=== PATIENT | male | born 1955 | race Caucasian/White ===

== ENCOUNTER 2019-12-04 06:10 | Day surgery (SDC) | payer MEDICARE, BC ==
[~2019-12-04] VITALS: Ht 172.7 cm; Wt 108.9 kg
[~2019-12-04 06:10] MED LIST: GLIPIZIDE10 MG PO; GLUCOPHAGE1000 MG PO; LEVOTHYROXINE100 MCG PO
[2019-12-04] MEDS ORDERED: LISINOPRIL20 MG PO (06:37)
--- NOTE | 2019-12-04 08:13 | NUR ---
12/04/19 0813 Nataly Maradiaga 0807 PATIENT ARRIVES TO PACU RESTING WITH EYES CLOSED. RESP EVEN AND UNLABORED, MASK AT 6 LITERS. PATIENT HAS KNOWN SLEEP APNEA, DID NOT BRING CPAP. PATIENT HAS FREQUENT EPISODES OF APNEA. WAKES UP WITH VERBAL STIMULI. DENIES PAIN OR NAUSEA.
--- NOTE | 2019-12-08 14:16 | OR ---
[facility] [address] [place], [place] [address] Signed DATE OF OPERATION: 12/04/2019 SURGEON: Rony Duque MD PREOPERATIVE DIAGNOSES: 1. Screening. 2. Small bowel resection for Crohn's disease in 1976. POSTOPERATIVE DIAGNOSES: 1. Left-sided diverticulosis. 2. A 5-7 mm polyps in proximal transverse colon, 90 cm, 80 cm and 7 cm. 3. Minimal to moderate internal hemorrhoids. 4. Right-sided ileocolic anastomosis at 130 cm. PROCEDURE: Colonoscopy with hot biopsy and biopsies of the terminal ileum. ESTIMATED BLOOD LOSS: None. INDICATIONS: Kannan is a 64-year-old gentleman, asked to see me for screening colonoscopy. He spoke of a negative colonoscopy in 2007 while living in [place]. He has no lower GI complaints. No family history of colon cancer or polyps. He said 18 inches of his ileum was taken out back in 1976 for concerns of Crohn's disease. He said he seems to be fine ever since then. In the office, I gave him a pamphlet on colonoscopy and we looked at that together along with the risks including, but not limited to gas bloating, crampy abdominal pain, bleeding, perforation requiring surgery, and missed diagnosis. He also understands the need for IV conscious sedation. He had expressed understanding and wished to proceed. DESCRIPTION OF PROCEDURE: Kannan was taken into our endoscopy suite and placed in the left lateral decubitus position. He was given IV sedation with 8 mg of Versed and 100 mcg of fentanyl. A digital rectal exam was performed and this was unremarkable. He is getting some induration to the prostate. The adult colonoscope was introduced and advanced quite readily around to the right colon. We could easily see his anastomosis. It appears to be an end anastomosis. The colonoscope could just fit through and up into the terminal ileum just about 8 cm or so. It looked quite healthy to us. We took two biopsies of the terminal ilium for pathologic review. The anastomosis was quite healthy. The scope Electronically Signed By: RONY DUQUE MD 12/04/19 1021 Electronically Signed By: RONY DUQUE MD 12/09/19 0724 PATIENT NAME: KANNAN PRO OPERATIVE REPORT DATE OF : 53 REPORT #: [id number] PHYSICIAN: RONY DUQUE MD PCP: TAL RODRIGUEZ MD REPORT IS CONFIDENTIAL AND NOT TO BE RELEASED WITHOUT AUTHORIZATION [facility] [address] [place], [place] [address] Signed was slowly withdrawn. The entire colon looked quite healthy. The above-mentioned polyps were easily removed with the help of hot biopsy forceps. Once in the rectum, the scope had been retroflexed and he does have minimal to moderate internal hemorrhoid tissue. After this, the gas was suctioned out and the colonoscope removed. Kannan tolerated the procedure quite well. RECOMMENDATIONS: I will see Kannan back in my office in 7 to 14 days to review his results. Rony Duque MD ALB/MODL /[id number] cc: MD Rony Lay MD Copies: RONY DUQUE MD ~ Electronically Signed By: RONY DUQUE MD 12/04/19 1021 Electronically Signed By: RONY DUQUE MD 12/09/19 0724 PATIENT NAME: KANNAN PRO OPERATIVE REPORT DATE OF : 53 REPORT #: [id number] PHYSICIAN: RONY DUQUE MD PCP: TAL RODRIGUEZ MD REPORT IS CONFIDENTIAL AND NOT TO BE RELEASED WITHOUT AUTHORIZATION
--- NOTE | 2019-12-09 12:37 | PATH ---
[facility] [address] [place], [place] [address] Signed SPECIMEN(S): A ILEUM SPECIMEN(S): B TRANSVERSE POLYP SPECIMEN(S): C COLON POLYP AT 90 CM SPECIMEN(S): D COLON POLYP AT 80 CM SPECIMEN(S): E COLON AT 7 CM SPECIMEN SOURCE: A. ILEUM B. TRANSVERSE POLYP C. COLON POLYP AT 90 CM D. COLON POLYP AT 80 CM E. COLON AT 7 CM CLINICAL HISTORY: Screening, history of Crohn's. Postop: Diverticulosis, internal hemorrhoids, polyps. Colonoscopy. MICROSCOPIC DESCRIPTION: Histologic sections of all submitted blocks are examined by light microscopy. These findings, together with the gross examination, support the pathologic diagnosis. FINAL PATHOLOGIC DIAGNOSIS: A. Ileum, biopsy: - Ileal mucosa with no histopathologic abnormality. - Negative for granulomas. - Negative for dysplasia or malignancy. B. Colon, transverse, polyp, polypectomy: - Hyperplastic polyp. - Negative for dysplasia or malignancy. C. Colon, polyp at 90 cm, polypectomy: - Fragments of colonic mucosa with significant cautery artifact. - Negative for high-grade dysplasia or malignancy. - See comment. D. Colon, polyp at 80 cm, polypectomy: - Tubular adenoma. - Negative for high-grade dysplasia or malignancy. E. Colon at 7 cm, biopsy: - Cauterized colonic mucosa with no histopathologic abnormality. - Negative for dysplasia or malignancy. COMMENT: PATIENT NAME: INOCENCIA,MIREYA PATHOLOGY DATE OF : 53 REPORT #: [id number] PHYSICIAN: EMILIANO GARVEY PCP: TAL RODRIGUEZ MD REPORT IS CONFIDENTIAL AND NOT TO BE RELEASED WITHOUT AUTHORIZATION [facility] [address] [place], [place] [address] Signed Regarding specimen C: Sections of the colon polyp at 90 cm demonstrate fragments of colonic mucosa with significant cautery artifact, precluding the definitive evaluation for low-grade dysplasia. If clinical concern remains high, a repeat biopsy may be helpful. NAL:emb:C2NR GROSS DESCRIPTION: Five specimens are received in five containers, labeled "DW." A. The specimen, labeled "DW, one," and designated on the requisition "ileum biopsy," is received in formalin and consists of two paez soft tissue fragment(s) that measure 0.3 and 0.4 cm in greatest dimension. The specimen is entirely submitted in cassette (A1). B. The specimen, labeled "DW, two," and designated on the requisition "transverse biopsy," is received in formalin and consists of two elongated paez soft tissue fragment(s) that measure 0.4 and 0.5 cm in greatest dimension. The specimen is entirely submitted in cassette (B1). C. The specimen, labeled "DW, three," and designated on the requisition "colon polyp at 90 cm," is received in formalin and consists of one paez soft tissue fragment(s) that measure 0.5 cm in greatest dimension. The specimen is entirely submitted in cassette (C1). D. The specimen, labeled "DW, four," and designated on the requisition "colon polyp 80 cm," is received in formalin and consists of two paez soft tissue fragment(s) that measure 0.2 and 0.3 cm in greatest dimension. The specimen is entirely submitted in cassette (D1). E. The specimen, labeled "DW, five," and designated on the requisition "colon at 7 cm," is received in formalin and consists of one paez soft tissue fragment(s) that measure 0.3 cm in greatest dimension. The specimen is entirely submitted in cassette (E1). AI (under the direct supervision of a pathologist) The Gross Description was prepared using a voice recognition system. The report was reviewed for accuracy; however, sound-alike word errors, addition and/or deletions may occur. If there is any question about this report, please contact Client Services. PERFORMING LABORATORY: The technical component was performed by [facility], [address] [place] [id number] (Medical Research Tech: Arlene Benjamin MD; CLIA# [id number]). Professional interpretation was performed by [facility] [address] (Medical Research Tech: Benedict Perea M.D.; CLIA#: [id number]). PATIENT NAME: MIREYA PRO PATHOLOGY DATE OF : 53 REPORT #: [id number] PHYSICIAN: EMILIANO PATHOLOGY PCP: TAL RODRIGUEZ MD REPORT IS CONFIDENTIAL AND NOT TO BE RELEASED WITHOUT AUTHORIZATION [facility] [address] [place], [place] [address] Signed Diagnostician: Rianna Paz MD Pathologist Electronically Signed 12/09/2019 Copies: ~ PATIENT NAME: MIREYA PRO PATHOLOGY DATE OF : 53 REPORT #: [id number] PHYSICIAN: EMILIANO GARVEY PCP: TAL RODRIGUEZ MD REPORT IS CONFIDENTIAL AND NOT TO BE RELEASED WITHOUT AUTHORIZATION
== END 2019-12-04 09:10 | disposition home or self-care (01) ==
LOC: DS 06:10 → OPS 06:10 → DS 08:15 → OPS 09:10
PROVIDERS: Colon & Rectal Surgery
PROC: 0DBL8ZX Excision of Transverse Colon, Via Natural or Artificial Opening Endoscopic, Diagnostic (ICD-10-PCS; 2019-12-04)
PROC: 0DBE8ZX Excision of Large Intestine, Via Natural or Artificial Opening Endoscopic, Diagnostic (ICD-10-PCS; 2019-12-04)
PROC: 0DBB8ZX Excision of Ileum, Via Natural or Artificial Opening Endoscopic, Diagnostic (ICD-10-PCS; principal; 2019-12-04 06:45)
DX: Z12.11 Encounter for screening for malignant neoplasm of colon (principal); D12.6 Benign neoplasm of colon, unspecified; K63.5 Polyp of colon; K57.30 Diverticulosis of large intestine without perforation or abscess without bleeding; K64.8 Other hemorrhoids; I10 Essential (primary) hypertension; E11.9 Type 2 diabetes mellitus without complications; N52.9 Male erectile dysfunction, unspecified; G83.4 Cauda equina syndrome; G47.33 Obstructive sleep apnea (adult) (pediatric); Z98.890 Other specified postprocedural states; Z90.49 Acquired absence of other specified parts of digestive tract; Z79.84 Long term (current) use of oral hypoglycemic drugs; Z79.899 Other long term (current) drug therapy; Z87.891 Personal history of nicotine dependence; Z88.5 Allergy status to narcotic agent
CPT/HCPCS: 88305; 99153; G0500; J2250; J3010; J7121